=== PATIENT | female | born 1970 | race Caucasian/White ===

== ENCOUNTER 2019-07-19 17:11 | Emergency (ER) | payer MEDICAID ==
[~2019-07-19] VITALS: Ht 162.6 cm; Wt 81.0 kg
[2019-07-19 17:27] VITALS: BP 142/83
[2019-07-19] MEDS ORDERED: IBUPROFEN 400MG TABLET PO ONE (21:00)
== END 2019-07-19 22:10 | disposition home or self-care (01) ==
LOC: ER 17:11
DX: M54.89 Other dorsalgia (principal); V49.40XA Driver injured in collision with unspecified motor vehicles in traffic accident, initial encounter; Y93.89 Activity, other specified; Y92.410 Unspecified street and highway as the place of occurrence of the external cause
CPT/HCPCS: 72070; 72100; 99283

== ENCOUNTER 2023-02-13 07:39 | Emergency (ER) | payer MEDICAID ==
[~2023-02-13] VITALS: Ht 167.6 cm; Wt 74.0 kg
[2023-02-13] MEDS ORDERED: PERM60CR4 TP (09:47)
[2023-02-13 10:43] VITALS: BP 132/74
== END 2023-02-13 10:56 | disposition home or self-care (01) ==
LOC: ER 07:39
DX: B86 Scabies (principal)
CPT/HCPCS: 81025; 99282

== ENCOUNTER 2023-11-04 12:54 | Emergency (ER) | payer MEDICAID ==
[~2023-11-04] VITALS: Ht 167.6 cm; Wt 86.0 kg
[~2023-11-04 12:54] MED LIST: PERM60CR4 TP
[2023-11-04 12:59] VITALS: TEMP 98; O2SAT 100
[2023-11-04] MEDS ORDERED: CYCL10TA21 MT (14:32)
[2023-11-04] MEDS: CYCLOBENZAPRINE 10MG TABLET PO ONE (14:44)
[2023-11-04 14:45] VITALS: BP 113/72; PULSE 94; RESP 16
== END 2023-11-04 14:47 | disposition home or self-care (01) ==
LOC: ER 12:54
DX: S30.0XXA Contusion of lower back and pelvis, initial encounter (principal); S09.8XXA Other specified injuries of head, initial encounter; X58.XXXA Exposure to other specified factors, initial encounter; Y93.89 Activity, other specified; Y92.89 Other specified places as the place of occurrence of the external cause; Y99.8 Other external cause status
CPT/HCPCS: 99283

== ENCOUNTER 2024-04-16 12:43 | Emergency (ER) | payer MEDICAID ==
[~2024-04-16] VITALS: Ht 170.2 cm; Wt 80.0 kg
[~2024-04-16 12:43] MED LIST changes: +CYCL10TA21 MT
[2024-04-16 12:46] VITALS: BP 129/80; PULSE 92; RESP 16; TEMP 98.8; O2SAT 98
[2024-04-16] MEDS ORDERED: NIRM1TAB8 PO (14:33)
== END 2024-04-16 14:14 | disposition home or self-care (01) ==
LOC: ER 12:43
DX: U07.1 COVID-19 (principal)
CPT/HCPCS: 87426; 99283

== ENCOUNTER 2024-04-23 17:49 | Emergency (ER) | payer MEDICAID ==
[~2024-04-23] VITALS: Ht 170.2 cm; Wt 68.0 kg
[~2024-04-23 17:49] MED LIST changes: +NIRM1TAB8 PO
[2024-04-23 18:03] VITALS: O2SAT 100
[2024-04-23 20:30] VITALS: BP 149/75; PULSE 98; RESP 18; TEMP 36.78072; O2SAT 100
== END 2024-04-23 20:45 | disposition home or self-care (01) ==
LOC: ER 17:49
DX: Z20.822 Contact with and (suspected) exposure to COVID-19 (principal)
CPT/HCPCS: 87426; 99283